=== PATIENT | male | born 1975 | race Caucasian/White ===

== ENCOUNTER 2021-10-22 07:46 | Emergency (ER) | payer BC ==
[~2021-10-22] VITALS: Ht 175.3 cm; Wt 81.6 kg
[2021-10-22 08:25] LABS: BASOPHILS % (AUTO) 0.7 % (0.0-5.0); EOSINOPHILS % (AUTO) 1.2 % (0.0-8.0); HEMATOCRIT 47.1 % (42-54); LYMPHOCYTES % (AUTO) 22.4 % (21.0-51.0); MEAN CORPUSCULAR HEMOGLOBIN 29.6 pg (27.0-33.0); MEAN CORPUSCULAR HGB CONC 34.4 g/dL (32.0-36.0); MEAN CORPUSCULAR VOLUME 86.1 fL (79-99); MONOCYTES % (AUTO) 9.3 % (3.0-13.0); NEUTROPHILS % (AUTO) 66.2 % (40.0-77.0); PLATELET COUNT (AUTO) 217 K/uL (130-400); RED BLOOD CELL COUNT(AUTO) 5.47 MIL/uL (4.50-6.20); WHITE BLOOD COUNT (AUTO) 5.8 K/uL (4.8-10.8)
[2021-10-22] MEDS ORDERED: ONDANSETRON 4MG INJ ONE (08:25)
[2021-10-22] MEDS ORDERED: MORPHINE 4 MG SYG ONE (08:25)
[2021-10-22 08:41] LABS: APPEARANCE,URINE SL CLOUDY (CLEAR); BILIRUBIN,URINE SMALL (NEGATIVE); COLOR,URINE DARK YELLOW (YELLOW); GLUCOSE, URINE (UA) NEGATIVE (NEGATIVE); KETONES,URINE 5 mg/dL (NEGATIVE); LEUKOCYTE ESTERASE ,URINE NEGATIVE (NEGATIVE); NITRATE,URINE NEGATIVE (NEGATIVE); OCCULT BLOOD,URINE LARGE (NEGATIVE); PH,URINE 5.5 (5.0-8.0); PROTEIN,URINE 100 mg/dL (NEGATIVE)
[2021-10-22 08:47] LABS: ALBUMIN 4.4 g/dL (3.5-5.0); BILIRUBIN,TOTAL 0.8 mg/dL (0.2-1.0); CREATININE 1.2 mg/dL (0.5-1.5); POTASSIUM 3.3 mmol/L (3.5-5.1); TOTAL PROTEIN, SERUM 7.6 g/dL (6.0-8.3)
[2021-10-22 08:50] LABS: BACTERIA,URINE Few /HPF (None Seen); MUCUS,URINE Few LPF (None Seen); RBC,URINE >100 /HPF (0-1); SQUAMOUS EPITHELIAL CELL,UR Rare /HPF (0-2); WBC,URINE 0-1 /HPF (0-1)
[2021-10-22] MEDS ORDERED: MORPHINE 4 MG SYG IVP ONE (09:00)
[2021-10-22] MEDS ORDERED: ONDANSETRON 4MG INJ IVP ONE (09:00)
[2021-10-22] MEDS ORDERED: KETOROLAC 30MG VIAL (30MG/ML) ONE (09:20)
[2021-10-22] MEDS ORDERED: KETOROLAC 30MG VIAL (30MG/ML) IVP ONE (09:30)
[2021-10-22] MEDS ORDERED: TAMSULOSIN HCL 0.4 MG CAP.ER.24H PO SCH (10:00)
[2021-10-22 12:08] VITALS: BP 137/91
[2021-10-22] MEDS ORDERED: ACET-2079 PO (12:28)
[2021-10-22] MEDS ORDERED: ONDA4TAB10 PO (12:28)
[2021-10-22] MEDS ORDERED: TAMS-1 PO (12:28)
[2021-10-22] MEDS ORDERED: IBUP-2070 PO (12:30)
== END 2021-10-22 12:58 | disposition home or self-care (01) ==
LOC: EDH 07:46
DX: N20.1 Calculus of ureter (principal); F41.9 Anxiety disorder, unspecified; I10 Essential (primary) hypertension
CPT/HCPCS: 36415; 74176; 80053; 81001; 85025; 96374; 96375; 99284; J1885; J2270; J2405